=== PATIENT | male | born 1985 | race African-American/Black ===

== ENCOUNTER 2016-12-14 00:21 | Emergency (ER) | payer OTHER ==
[~2016-12-14] VITALS: Ht 177.8 cm; Wt 65.8 kg
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
== END 2016-12-14 04:28 | disposition home or self-care (01) ==
LOC: CED 00:21
DX: S80.01XA Contusion of right knee, initial encounter (principal); F17.210 Nicotine dependence, cigarettes, uncomplicated; V29.49XA Motorcycle driver injured in collision with other motor vehicles in traffic accident, initial encounter; Y93.89 Activity, other specified; Y92.410 Unspecified street and highway as the place of occurrence of the external cause
CPT/HCPCS: 29505; 73502; 73562; 73590; 99283

== ENCOUNTER 2016-12-23 19:22 | Emergency (ER) | payer OTHER ==
[~2016-12-23] VITALS: Ht 177.8 cm; Wt 65.8 kg
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
== END 2016-12-23 21:50 | disposition home or self-care (01) ==
LOC: CFTX 19:22 → CED 19:22 → CFTX 19:54
DX: S83.91XA Sprain of unspecified site of right knee, initial encounter (principal); F17.210 Nicotine dependence, cigarettes, uncomplicated; W05.1XXA Fall from non-moving nonmotorized scooter, initial encounter; Y92.410 Unspecified street and highway as the place of occurrence of the external cause
CPT/HCPCS: 29530; 73562; 99283